=== PATIENT | female | born 1985 | race Caucasian/White ===

== ENCOUNTER 2019-04-22 21:07 | Emergency (ER) | payer BC ==
[~2019-04-22] VITALS: Ht 167.6 cm; Wt 50.0 kg
[2019-04-22 21:39] VITALS: Ht 167.6 cm; Wt 50.0 kg
[2019-04-22] MEDS ORDERED: VALIUM5 MG PO (21:41)
[2019-04-22 22:19] LABS: BASOPHILS 0.3 % (0-2); EOSINOPHILS 1.6 % (0-7); HEMATOCRIT 39.8 % (36.0-48.0); IMMATURE GRANULOCYTES 0.1 % (0-5); LYMPHOCYTES 12.3 % (15-50); MCH 32.2 pg (26.0-34.0); MCHC 35.2 g/dL (31.0-37.0); MCV 91.5 fL (80.0-100.0); MEAN PLATELET VOLUME 9.1 fL (7.4-10.4); MONOCYTES 9.7 % (2-11); PLATELET COUNT 223 10x3/uL (130-400); RBC 4.35 10x6/uL (4.00-5.40); RDW 12.7 % (11.5-14.5); WBC 7.4 10x3/uL (4.8-10.8)
[2019-04-22 22:28] LABS: APTT 27.9 SECONDS (22.8-39.4); INR 1.02 (0.85-1.17); PROTIME 12.9 SECONDS (11.6-15.0)
[2019-04-22 22:33] LABS: ALBUMIN 3.7 g/dL (3.4-5.0); ALKALINE PHOSPHATASE 73 U/L (46-116); ALT (SGPT) 36 U/L (10-68); AMYLASE - SERUM 40 U/L (25-115); BILIRUBIN - TOTAL 0.52 mg/dL (0.2-1.3); CALCIUM 8.5 mg/dL (8.5-10.1); CARBON DIOXIDE 33.2 mmol/L (21.0-32.0); CHLORIDE - SERUM 106 mmol/L (98-107); CREATININE - SERUM 0.8 mg/dL (0.6-1.3); LIPASE 239 U/L (73-393); PROTEIN - SERUM 6.9 g/dL (6.4-8.2); SODIUM 143 mmol/L (136-145); UREA NITROGEN 10 mg/dL (7-18); eGFR NON AFRICAN AMERICAN 87 mL/min (90-120)
[2019-04-22 22:34] LABS: CALC OSMOLALITY 281 mosm/kg (275-300); GLUCOSE 68 mg/dL (74-106)
[2019-04-22 22:36] LABS: POTASSIUM - SERUM 2.7 mmol/L (3.5-5.1)
[2019-04-23] MEDS ORDERED: IBUPROFEN800 MG PO (00:07)
[2019-04-23] MEDS ORDERED: CYCLOBENZAPRINE10 MG PO (00:07)
[2019-04-23] MEDS ORDERED: ACETAMINOPHEN500 M1 PO (00:07)
[2019-04-23 00:43] VITALS: BP 114/61
== END 2019-04-23 00:30 | disposition home or self-care (01) ==
LOC: D.ER 21:07
PROVIDERS: Family Medicine
DX: S36.112A Contusion of liver, initial encounter (principal); V89.2XXA Person injured in unspecified motor-vehicle accident, traffic, initial encounter; R51 Headache; R10.9 Unspecified abdominal pain

== ENCOUNTER 2019-05-09 12:41 | Emergency (ER) | payer BC ==
[~2019-05-09] VITALS: Ht 165.1 cm; Wt 50.0 kg
[~2019-05-09 12:41] MED LIST: ACETAMINOPHEN500 M1 PO; CYCLOBENZAPRINE10 MG PO; IBUPROFEN800 MG PO; VALIUM5 MG PO
[2019-05-09 13:00] VITALS: BP 114/61; Ht 165.1 cm; Wt 50.0 kg
== END 2019-05-09 17:14 | disposition left against medical advice (07) ==
LOC: D.ER 12:41
DX: R42 Dizziness and giddiness (principal)